=== PATIENT | female | born 1975 | race African-American/Black ===

== ENCOUNTER 2017-08-10 21:03 | Emergency (ER) | payer SELFPAY ==
[~2017-08-10] VITALS: Ht 165.1 cm; Wt 115.9 kg
[2017-08-10 21:07] VITALS: TEMP 98.8
[2017-08-10] MEDS ORDERED: ATARAX50 MG PO (21:21)
[2017-08-10] MEDS ORDERED: LASIX 40MG TABL40 MG PO (21:21)
[2017-08-10] MEDS ORDERED: GLUCOPHAGE1000 MG PO (21:22)
[2017-08-10] MEDS ORDERED: LANTUS100 U/ML SQ (21:22)
[2017-08-10] MEDS ORDERED: PROTONIX 40MG T40 MG PO (21:22)
[2017-08-10] MEDS ORDERED: KLOR-CON 1010 MEQ PO (21:23)
[2017-08-10] MEDS ORDERED: COUMADIN 1010 MG/TAB PO (21:23)
[2017-08-10] MEDS ORDERED: COUMADIN 77.5 MG/TAB PO (21:24)
[2017-08-10] MEDS ORDERED: NOVOLOGMIX70/30 SQ (21:25)
[2017-08-10 22:00] LABS: BASO % 0.4 % (0.0-2.0); EOS # 0.1 (0.0-0.7); EOS % 1.5 % (0-4.0); GRAN # 2.2 (1.4-6.5); GRAN % 32.2 % (42.2-75.2); HEMATOCRIT 36.9 % (37.0-47.0); HEMOGLOBIN 11.9 g/dl (12.5-16.0); LYMPH % 59.1 % (20.0-51.0); MEAN CELL VOLUME 71 fl (80.0-100.0); MEAN CORPUSCULAR HEMOGLOBIN 23 pg (27.0-31.0); MEAN CORPUSCULAR HGB CONC 32 g/dl (33.0-37.0); MEAN PLATELET VOLUME 9.8 fl (7.4-10.4); MONO # 0.4 (0.1-0.6); MONO % 6.5 % (1.7-9.3); PLATELET COUNT 336 K/mm3 (130-400); RED BLOOD COUNT 5.21 M/mm3 (4.10-5.30)
[2017-08-10 22:05] LABS: INR 3.1 (0.8-3.0); PROTHROMBIN TIME 35.5 SECONDS (9.7-12.8)
[2017-08-10 22:07] LABS: PARTIAL THROMBOPLASTIN TIME 46.9 SECONDS (26.0-37.0)
[2017-08-10 22:12] LABS: CALCIUM 8.6 mg/dL (8.4-10.2); CREATININE, serum 0.67 mg/dL (0.52-1.25); POTASSIUM 3.9 mmol/L (3.4-5.0)
[2017-08-10] MEDS ORDERED: NORCO 325 MG-51 TAB PO (22:54)
[2017-08-10 23:09] VITALS: BP 132/81; PULSE 98
== END 2017-08-10 23:15 | disposition home or self-care (01) ==
LOC: COL.ER 21:03
PROVIDERS: Physician Assistant
DX: M54.32 Sciatica, left side (principal); Z86.718 Personal history of other venous thrombosis and embolism; Z95.820 Peripheral vascular angioplasty status with implants and grafts; Z79.4 Long term (current) use of insulin; Z79.01 Long term (current) use of anticoagulants
CPT/HCPCS: J2270; J2550